=== PATIENT | male | born 1980 | race Caucasian/White ===

== ENCOUNTER 2022-11-20 12:26 | Emergency (ER) | payer OTHER, SELFPAY ==
[2022-11-20] VITALS (20 sets, daily range): BP systolic 100–143; BP diastolic 55–86; PULSE 78–91; RESP 18; TEMP 36.6; O2SAT 91–99
--- NOTE | 2022-11-20 13:32 | ED.GENADULT ---
HPI - General Adult General Time Seen by Provider: 13:33 Date Seen: 11/20/22 Chief complaint: Diabetic Related Problem Stated complaint: type 1 diabetes complications Time Seen by Provider: 11/20/22 13:24 Source: patient, RN notes reviewed and resourcing advisor Mode of arrival: ambulatory Limitations: no limitations History of Present Illness HPI narrative: Patient is a 42-year-old male that was referred from [facility] with elevated sugar of 470, is a type 1 diabetic. He reports that he has been sick since yesterday with generalized abdominal pain, nausea vomiting, concern for fever, some diarrhea which is nonbloody. He thinks he has maybe had 14-15 episodes of emesis since yesterday. Has not been able to keep anything in. Is on insulin for his diabetes. He reports he was told to stop cholesterol medicine last week as it was given him chest pressure. He does not have that any longer. He denies any ill contacts no travel. His face is felt flushed and hot which is why he thought he has had a fever with this but actually has not checked his temperature. Notes no urinary symptoms. Denies any history of diabetic ketoacidosis. He believes his last hemoglobin A1c was 9.8%. He reportedly received IV fluids and zofran at clinic. Denies nausea now. Related Data Home Medications Medication Instructions Recorded Confirmed insulin aspart U-100 100 unit/mL 20 unit subcut TIDWM 11/20/22 11/20/22 (3 mL) subcutaneous pen insulin glargine 100 unit/mL (3 25 unit subcut BID 11/20/22 11/20/22 mL) subcutaneous pen (Lantus Solostar U-100 Insulin) Previous Rx's Medication Instructions Recorded ondansetron 4 mg disintegrating 4 mg PO Q8H PRN nausea and 11/20/22 tablet vomiting #10 tabs Allergies Allergy/AdvReac Type Severity Reaction Status Date / Time hydromorphone AdvReac Intermediate itching Verified 11/20/22 12:39 Review of Systems Status of ROS: Reports: 6 or more systems reviewed and unremarkable except as noted in History and below PFSH PFSH Social History Smoking Status: Never smoker Non-prescribed substance use: denies use Exam Const: Vital Signs, click to edit/add: Vital Signs - 24 hr 11/20/22 12:33 11/20/22 13:36 11/20/22 14:48 Temperature 97.9 F Pulse Rate 79 Pulse Rate [Pulse Oximeter] 91 Respiratory Rate 18 Blood Pressure Blood Pressure [Ri ght Upper Arm] 116/76 Pulse Oximetry 97 94 92 Oxygen Delivery Me thod Room Air 11/20/22 15:00 11/20/22 15:01 11/20/22 15:15 Temperature Pulse Rate 79 78 78 Pulse Rate [Pulse Oximeter] Respiratory Rate Blood Pressure 114/67 Blood Pressure [Ri ght Upper Arm] Pulse Oximetry 91 94 94 Oxygen Delivery Me thod 11/20/22 15:30 11/20/22 15:31 11/20/22 15:45 Temperature Pulse Rate 79 78 84 Pulse Rate [Pulse Oximeter] Respiratory Rate Blood Pressure 114/72 Blood Pressure [Ri ght Upper Arm] Pulse Oximetry 94 95 97 Oxygen Delivery Me thod 11/20/22 16:00 11/20/22 16:01 11/20/22 16:15 Temperature Pulse Rate 82 80 78 Pulse Rate [Pulse Oximeter] Respiratory Rate Blood Pressure 100/60 Blood Pressure [Ri ght Upper Arm] Pulse Oximetry 99 96 97 Oxygen Delivery Me thod 11/20/22 16:32 11/20/22 16:33 11/20/22 16:45 Temperature Pulse Rate 81 79 80 Pulse Rate [Pulse Oximeter] Respiratory Rate Blood Pressure 143/86 H Blood Pressure [Ri ght Upper Arm] Pulse Oximetry 95 98 99 Oxygen Delivery Me thod 11/20/22 17:00 11/20/22 17:02 11/20/22 17:15 Temperature Pulse Rate 78 81 78 Pulse Rate [Pulse Oximeter] Respiratory Rate Blood Pressure 124/66 Blood Pressure [Ri ght Upper Arm] Pulse Oximetry 98 96 94 Oxygen Delivery Me thod 11/20/22 17:30 11/20/22 17:32 Temperature Pulse Rate 80 84 Pulse Rate [Pulse Oximeter] Respiratory Rate Blood Pressure 111/55 L Blood Pressure [Ri ght Upper Arm] Pulse Oximetry 98 98 Oxygen Delivery Me thod Documenting provider has reviewed patient's vital signs: yes Common normals: no apparent distress, average body habitus, oriented x3, no limitations, healthy appearing, alert and well nourished General appearance: cooperative, comfortable, well kempt and well developed HENMT: Common normals: normocephalic, head/scalp atraumatic, hearing grossly normal bilaterally and external nose normal Head and scalp: normocephalic and atraumatic Face and sinus: normal facial exam Nose: external nose normal Eye: Common normals: PERRL, EOMs intact bilaterally, conjunctivae normal and no scleral icterus Conjunctiva: conjunctiva(e) normal Pupil: PERRL Neck & C-Spine: Common normals: full ROM, no lymphadenopathy and supple Resp: Common normals: normal respiratory effort, no retractions, no use of accessory muscles and clear to auscultation bilaterally Auscultation: clear to auscultation bilaterally Cardio: Common normals: regular rate, regular rhythm, S1 normal heart sound, S2 normal heart sound, no gallops and no murmurs Rate: regular rate Rhythm: regular rhythm Heart sounds: S1 normal and S2 normal GI: Common normals: Normal to inspection, nondistended, normoactive bowel sounds present, soft to palpation, non-tender, no hepatosplenomegaly and no masses Palpation: soft and no hepatosplenomegaly Extremity: Common normals: no calf tenderness and no pedal edema Other: Has IV site in place in left forearm. Neuro: Common normals: oriented x3 Sensorium/orientation: alert Psych: Appearance: well kempt Course Course Hospital Course: Will initiate 1L NS IVF at this time. Check appropriate labs to ensure no diabetic ketoacidosis, otherwise it is likely gastroenteritis with hyperglycemia in a diabetic. No imaging at this time as not clinically indicated by his reassuring clinical exam. Reevaluate that if needed based on any status changes or concerning labs. Reevaluation(s) Time of Reevaluation #1: 16:18 Reevaluation #1: Reviewed plan for hospitalization with patient with resourcing advisor present. He unfortunately is going to get left behind if he does not get discharge this evening. 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 where he is from. Thus, reviewed with hospitalist. She did confirm that his hemoglobin A1c is in the 90s usually, he is likely running high most of the time. She would agree with completing the UA to see where his ketones and potentially how dry he really was, recheck Accu-Chek after 2 L of fluids. We can send out on some Zofran, will make sure he is able to drink here. As far as extra insulin, he has his insulin at the hotel and if we give him too much here, he is likely to potentially have hypoglycemia. Time of Reevaluation #2: 17:19 Reevaluation #2: Patient's Accu-Chek is 300. Will allow him to take his routine insulin when he gets back to his hotel. We have ordered some food, are going to make sure that he can tolerate orals. He is only showing 1+ ketones. Consultations Consultation #1: Spoke with Dr. Kumari whom accepts this patient for hospitalization. Still do not have urinalysis. It is likely he is going to need ongoing fluid support for a bit. He is at risk for ketoacidosis with ongoing fluid losses. Hospitalist has recommended another L of fluids, no insulin at this point, she will follow-up and decide on this. Time: 15:22 Vital Signs Vital signs: Initial Vital Signs Temperature 97.9 F 11/20/22 12:33 Temperature Source Temporal Artery Scan 11/20/22 12:33 Pulse Rate 91 11/20/22 12:33 Respiratory Rate 18 11/20/22 12:33 Blood Pressure 116/76 11/20/22 12:33 Blood Pressure Mean 89 11/20/22 12:33 Blood Pressure Position Sitting 11/20/22 12:33 Pulse Oximetry 97 11/20/22 12:33 Oxygen Delivery Method Room Air 11/20/22 12:33 Vital Signs Temperature 97.9 F 11/20/22 12:33 Pulse Rate 91 11/20/22 12:33 Respiratory Rate 18 11/20/22 12:33 Blood Pressure 116/76 11/20/22 12:33 Pulse Oximetry 97 11/20/22 12:33 Oxygen Delivery Method Room Air 11/20/22 12:33 Temperature 97.9 F 11/20/22 12:33 Pulse Rate 84 11/20/22 17:32 Respiratory Rate 18 11/20/22 12:33 Blood Pressure 111/55 L 11/20/22 17:32 Pulse Oximetry 98 11/20/22 17:32 Oxygen Delivery Method Room Air 11/20/22 12:33 Medical Decision Making Lab Data Lab results reviewed: Yes I reviewed the patient's lab results Labs: Lab Results 11/20/22 11/20/22 Range/Units 13:57 16:30 WBC 9.34 (4.50-11.00) K/uL RBC 5.97 H (4.30-5.90) m/uL Hgb 16.6 (13.5-17.5) gm/dL Hct 50.0 (37.0-53.0) % MCV 84 (80-100) fL MCH 28 (26-34) pg MCHC 33 (32-36) gm/dL RDW Coeff of Alyssia 12.9 (11.5-15.5) % Plt Count 223 (140-440) K/uL Neut % (Auto) 70.5 (42.0-72.0) % Lymph % (Auto) 20.1 (20-44) % [place] % (Auto) 0.7 (0.0-11.0) % Eos % (Auto) 0.0 (0.0-7.0) % Baso % (Auto) 0.2 (0.0-3.0) % Neut # (Auto) 6.60 (1.7-7.0) K/uL Lymph # (Auto) 1.90 (0.90-2.90) K/uL [place] # (Auto) 0.10 (0.00-0.90) K/UL Eos # (Auto) 0.00 (0.00-0.50) K/uL Baso # (Auto) 0.00 (0.00-0.30) K/uL VBG pH 7.388 (7.32-7.43) VBG pCO2 50 (40-50) mmHG VBG pO2 39.6 (25-47) mmHG VBG HCO3 30 H (21-28) mmol/L Sodium 130 L (135-149) mmol/L Potassium 5.0 (3.6-5.1) mmol/L Chloride 89 L (96-114) mmol/L Carbon Dioxide 27 (20-32) mmol/L BUN 59 H (5-24) mg/dL Creatinine 1.3 (0.5-1.5) mg/dL Estimated GFR 70 ml/min Glucose 461 H* (60-115) mg/dL Lactate 2.2 H (0.5-1.9) mmol/L Calcium 9.6 (8.4-10.6) mg/dL Magnesium 2.3 (1.5-2.6) mg/dL Total Bilirubin 1.2 (0.1-1.5) mg/dL AST 58 H (12-35) U/L ALT 90 H (4-50) U/L Alkaline Phosphatase 83 (40-150) U/L C-Reactive Protein 0.7 (0.5-1.0) mg/dL Total Protein 9.2 H (6.0-8.3) g/dL Albumin 5.3 H (3.3-5.0) g/dL Urine Color Light yellow (Yellow) Urine Appearance Clear (Clear) Urine pH 5.5 (5.0-8.5) Ur Specific [place] 1.015 (1.000-1.030) Urine Protein Negative (Negative) Urine Glucose (UA) 2+ A (Negative) Urine Ketones 1+ A (Negative) Urine Blood Negative (Negative) Urine Nitrite Negative (Negative) Urine Bilirubin Negative (Negative) Urine Urobilinogen 0.2 (0.2-1.0) Ur Leukocyte Esterase Negative (Negative) Urine RBC 0-2 (0-2) Urine WBC 0-2 (0-5) Ur Squamous Epith Cells None (None-Few) Urine Bacteria None (None) POC Troponin I 0.00 L (0.01-0.04) ng/ml ECG Data Attestation: I personally reviewed and interpreted this ECG as follows: (Normal sinus rhythm, 79 beats per minute. No ischemia. QT corrected 444 milliseconds.) Prior ECG tracings: not available for review Critical Care Time Critical Care Time Critical Care Time: No Discharge Plan Discharge Clinical Impression: Nausea, vomiting, and diarrhea, Type 1 diabetes mellitus with hyperglycemia Patient Disposition: Home, Self-Care Condition: Improved Instructions: Gastroenteritis (ED) Additional Instructions: Do need to take your insulin when you return back to the hotel. Prescription has been sent for Zofran, use this to help stop nausea and vomiting so that you can take in oral fluids. Is recommended that you follow-up with your primary care provider to work on better diabetic management. There is no concerning evidence for diabetic ketoacidosis but should you have ongoing nausea vomiting, increased abdominal pain, or feeling worse, do recommend re-evaluation. Hopefully this will be a self-limited gastroenteritis in you will improve from here. You may advance her diet as tolerated back to regular. It is very important that you are able to drink fluids and if you cannot do so, need to be re-evaluated. Activity Level: Activity as Tolerated Discharge Diet: Diabetic Prescriptions: New ondansetron 4 mg tablet,disintegrating 4 mg PO Q8H PRN (Reason: nausea and vomiting) Qty: 10 0RF No Action insulin aspart U-100 100 unit/mL (3 mL) insulin pen 20 unit subcut TIDWM insulin glargine [Lantus Solostar U-100 Insulin] 100 unit/mL (3 mL) insulin pen 25 unit subcut BID Follow Up/Referrals: Provider,Not a Local [Primary Care Provider] - Stand Alone Forms: MyHealth Info Instructions
[2022-11-20 14:04] LABS: HCO3 VBG 30 mmol/L (21-28); PCO2 VBG 50 mmHG (40-50); PO2 VBG 39.6 mmHG (25-47); pH VBG 7.388 (7.32-7.43)
[2022-11-20 14:19] LABS: Lactate* 2.2 mmol/L (0.5-1.9)
[2022-11-20 14:25] LABS: Albumin* 5.3 g/dL (3.3-5.0); Chloride* 89 mmol/L (96-114); Sodium* 130 mmol/L (135-149)
[2022-11-20 14:29] LABS: Alanine Aminotransferase* 90 U/L (4-50); Alkaline Phosphatase* 83 U/L (40-150); Aspartate Amino Transferase* 58 U/L (12-35); Bilirubin Total* 1.2 mg/dL (0.1-1.5); Blood Urea Nitrogen* 59 mg/dL (5-24); Calcium* 9.6 mg/dL (8.4-10.6); Carbon Dioxide* 27 mmol/L (20-32); Creatinine* 1.3 mg/dL (0.5-1.5); Estimated Glomerular Filt Rate 70 ml/min; Total Protein* 9.2 g/dL (6.0-8.3)
[2022-11-20 14:31] LABS: C Reactive Protein* 0.7 mg/dL (0.5-1.0)
[2022-11-20 14:33] LABS: Magnesium* 2.3 mg/dL (1.5-2.6)
[2022-11-20 14:36] LABS: Glucose* 461 mg/dL (60-115)
[2022-11-20 14:47] LABS: White Blood Count* 9.34 K/uL (4.50-11.00)
[2022-11-20 14:48] LABS: Hemoglobin* 16.6 gm/dL (13.5-17.5); Lymphocytes Percent Auto 20.1 % (20-44); Mean Corpuscular HGB Conc 33 gm/dL (32-36); Mean Corpuscular Hemoglobin 28 pg (26-34); Mean Corpuscular Volume 84 fL (80-100); Monocytes Percent Auto 0.7 % (0.0-11.0); Neutrophils Percent Auto 70.5 % (42.0-72.0); Platelet Count* 223 K/uL (140-440); RDW Coefficient of Variation % 12.9 % (11.5-15.5); Red Blood Count 5.97 m/uL (4.30-5.90)
[2022-11-20 14:49] LABS: Basophils Percent Auto 0.2 % (0.0-3.0); Immature Granulocytes Pct Auto 0.1 %; Slide Review Reflex No
[2022-11-20] MEDS: 0.9 % SODIUM CHLORIDE 1000 ml 1,000 ML 500 ML IV (15:35)
[2022-11-20 17:05] LABS: Appearance Urine Clear (Clear); Bilirubin Urine Negative (Negative); Color Urine Light yellow (Yellow); Glucose Urine 2+ (Negative); Ketones Urine 1+ (Negative)
[2022-11-20 17:06] LABS: Blood Urine Negative (Negative); Leukocyte Esterase Urine Negative (Negative); Nitrite Urine Negative (Negative); Protein Urine Negative (Negative); RBC Urine 0-2 (0-2); Specific Gravity Urine 1.015 (1.000-1.030); Urobilinogen Urine 0.2 (0.2-1.0); WBC Urine 0-2 (0-5); pH Urine 5.5 (5.0-8.5)
--- NOTE | 2022-11-20 17:36 | ED.NURSE ---
Meal provided to patient.
== END 2022-11-20 18:21 | disposition home or self-care (01) ==
PROVIDERS: Emergency Provider Family Medicine
DX: E10.65 Type 1 diabetes mellitus with hyperglycemia (principal)
CPT/HCPCS: 36415; 80053; 81001; 82803; 82962; 83605; 83735; 84484; 85025; 86140; 93005; 94761; 99284; T1013; J7030